=== PATIENT | female | born 1945 | race Caucasian/White ===

== ENCOUNTER 2018-02-23 02:58 | Emergency (ER) | payer OTHER ==
[~2018-02-23] VITALS: Ht 152.4 cm; Wt 102.1 kg
[~2018-02-23 02:58] MED LIST: AMBEREN; APAP W/CODEINE1 TA2 PO; ASPRIMOX 325 M325 MG PO; ATIVAN1 MG PO; CARDIZEM CD180 MG PO; CARTIA XT180 M1 PO; COUMADIN 5 MG TA5 M1 PO; HYDROCHLOROTH12.5 M1 PO; HYDROCHLOROTHIA25 M1 PO; LIDODERM 5%1 PATC1 TRANSDERM; LISINOPRIL20 MG PO; MELATONIN1 MG PO; NEURONTIN 300300 M1 PO; POTASSIUM20; TYLENOL ARTHRITIS PO; ZANTAC 150MG T150 MG PO; ZOCOR 20 MG TAB20 M1 PO
[2018-02-23] MEDS ORDERED: ZANTAC 150MG T150 MG (03:21)
[2018-02-23] MEDS ORDERED: PRINZIDE 20-251 EACH (03:23)
[2018-02-23 03:45] LABS: ABSOLUTE EOSINOPHILS 0.4 thou/uL (0.0-0.7); ABSOLUTE LYMPHOCYTES 2.4 thou/uL (0.8-5.3); ABSOLUTE MONOCYTES 0.7 thou/uL (0.0-1.2); ABSOLUTE NEUTROPHILS 2.7 thou/uL (1.6-8.1); BASOPHILS 0.6 %; HEMATOCRIT 41.2 % (37.0-47.0); HEMOGLOBIN 13.9 gm/dL (12.0-15.0); LYMPHOCYTES 38.9 %; MCH 31.2 pg (26.0-34.0); MCHC 33.8 g/dL (28.0-37.0); MPV 7.9 fl. (7.2-11.1); NUCLEATED RBCS 0 /100WBC; PLATELET COUNT* 246 thou/uL (150-400); POLYS 43.5 %; RBC 4.48 mil/uL (4.20-5.00); RDW-CV 14.7 % (10.5-14.5); WBC 6.2 thou/uL (4.0-11.0)
[2018-02-23 03:55] LABS: ANION GAP 8 mmol/L (7-16); BUN 22 mg/dL (7-18); CALCIUM 8.9 mg/dL (8.5-10.1); CHLORIDE 105 mmol/L (98-107); CO2 29 mmol/L (21-32); CREATININE 0.9 mg/dL (0.6-1.3); GLUCOSE 109 mg/dL (70-99); POTASSIUM 3.7 mmol/L (3.5-5.1); SODIUM 142 mmol/L (136-145)
[2018-02-23 03:57] LABS: INR 1.1; PROTIME 10.6 Seconds (9.20-11.50)
[2018-02-23 04:02] LABS: ALBUMIN 3.2 g/dL (3.4-5.0); ALKALINE PHOSPHATASE 90 U/L (46-116); SGOT 20 U/L (15-37); SGPT 19 U/L (30-65); TOTAL BILIRUBIN 0.3 mg/dL (<0.1-1.0); TOTAL PROTEIN 6.8 g/dL (6.4-8.2); TROPONIN-I LEVEL <0.06 ng/mL (<0.06)
[2018-02-23 04:32] LABS: URINE BILIRUBIN NEGATIVE (Negative); URINE BLOOD NEGATIVE (Negative); URINE CLARITY CLEAR; URINE COLOR YELLOW; URINE GLUCOSE-RANDOM NEGATIVE (Negative); URINE KETONES NEGATIVE (Negative); URINE LEUKOCYTES-REFLEX NEGATIVE (Negative); URINE NITRITE-REFLEX NEGATIVE (Negative); URINE PROTEIN NEGATIVE (Negative); URINE SPECIFIC GRAVITY <= 1.005 (1.005-1.030); URINE UROBILINOGEN 0.2 E.U./dl (0.2-1.0)
[2018-02-23 06:52] VITALS: BP 126/72
--- NOTE | 2018-02-23 18:43 | EKG ---
[place] [address] ELECTROCARDIOGRAM REPORT Name: NICHOBUZZ Linn [id number] Admission: 02/23/18 Attend Phys: Discharge: 02/23/18 Date of : 41 Report #: [id number] THIS REPORT FOR: //name// [facility] ED Test Date: 2018-02-23 Test Time: 03:04:43 Pat Name: BUZZ TORRE Department: Room: Gender: F Net Developer Software Engineer C: VERONIKA Casarez : 1945 Requested By: Glenny Ellis Order Number: [id number] : Jimmy Nunes Measurements Intervals Morrison Rate: 84 P: AR: QRS: 36 QRSD: 95 T: 59 QT: 363 QTc: 430 Interpretive Statements Atrial fibrillation Borderline repolarization abnormality Compared to ECG 02/04/2011 00:24:24 Sinus bradycardia no longer present Electronically Signed On 02-23-2018 18:43:04 CDT by Jimmy Nunes [email or web address] <ELECTRONICALLY SIGNED> By: Jimmy Nunes MD, [facility] 02/23/18 1843 0304 0304 Jimmy Nunes MD, FACC /EPI
== END 2018-02-23 06:53 | disposition home or self-care (01) ==
LOC: M.ERS 02:58
PROVIDERS: Emergency Medicine
DX: R20.2 Paresthesia of skin (principal); I10 Essential (primary) hypertension; I48.91 Unspecified atrial fibrillation; Z96.641 Presence of right artificial hip joint; Z90.49 Acquired absence of other specified parts of digestive tract; Z88.5 Allergy status to narcotic agent; Z88.8 Allergy status to other drugs, medicaments and biological substances

== ENCOUNTER 2021-03-23 10:19 | Emergency (ER) | payer OTHER ==
[~2021-03-23] VITALS: Ht 152.4 cm; Wt 104.3 kg
[~2021-03-23 10:19] MED LIST changes: +PRINZIDE 20-251 EACH; +ZANTAC 150MG T150 MG
[2021-03-23] MEDS ORDERED: JANTOVEN4 MG PO (10:38)
[2021-03-23 12:06] LABS: ABSOLUTE EOSINOPHILS 0.2 thou/uL (0.0-0.7); ABSOLUTE MONOCYTES 0.8 thou/uL (0.0-1.2); ABSOLUTE NEUTROPHILS 4.9 thou/uL (1.6-8.1); BASOPHILS 0.5 %; HEMOGLOBIN 14.4 gm/dL (12.0-15.0); LYMPHOCYTES 24.6 %; MCH 31.3 pg (26.0-34.0); MCHC 34.3 g/dL (28.0-37.0); MCV 91.3 fL (80.0-100.0); MONOCYTES 10.6 %; MPV 7.7 fl. (7.2-11.1); NUCLEATED RBCS 0 /100WBC; PLATELET COUNT* 254 thou/uL (150-400); POLYS 61.3 %; RDW-CV 14.8 % (10.5-14.5)
[2021-03-23 12:21] LABS: APTT 44.7 Seconds (25.0-31.3); INR 3.4; PROTIME 33.1 Seconds (9.20-11.50)
[2021-03-23 13:48] LABS: URINE BILIRUBIN NEGATIVE (Negative); URINE BLOOD 3+ (Negative); URINE CLARITY CLEAR; URINE COLOR YELLOW; URINE GLUCOSE-RANDOM NEGATIVE (Negative); URINE KETONES NEGATIVE (Negative); URINE LEUKOCYTES-REFLEX NEGATIVE (Negative); URINE PROTEIN NEGATIVE (Negative); URINE SPECIFIC GRAVITY <= 1.005 (1.005-1.030); URINE UROBILINOGEN 0.2 E.U./dl (0.2-1.0)
[2021-03-23 13:49] LABS: URINE NITRITE-REFLEX POSITIVE (Negative)
[2021-03-23 13:55] LABS: SQUAMOUS 0-3 Few /LPF (0-3)
[2021-03-23 13:56] LABS: BACTERIA-REFLEX >30 Many /HPF (None Seen); CASTS None Seen /LPF (None Seen); CRYSTALS None Seen /LPF (None Seen); MUCUS None Seen strn/LPF (None Seen); URINE RBC 3-10 Few /HPF (0-2); URINE WBC-REFLEX None Seen /HPF (0-5)
[2021-03-23] MEDS ORDERED: CEPHALEXIN500 MG PO (14:13)
[2021-03-23 14:27] VITALS: BP 137/77
== END 2021-03-23 14:29 | disposition home or self-care (01) ==
LOC: M.ERS 10:19
PROVIDERS: Family Medicine
DX: N39.0 Urinary tract infection, site not specified (principal); N93.8 Other specified abnormal uterine and vaginal bleeding; I10 Essential (primary) hypertension; I48.91 Unspecified atrial fibrillation; Z90.49 Acquired absence of other specified parts of digestive tract; Z88.1 Allergy status to other antibiotic agents; Z88.5 Allergy status to narcotic agent; Z88.8 Allergy status to other drugs, medicaments and biological substances; Z79.899 Other long term (current) drug therapy

== ENCOUNTER 2021-11-02 17:27 | Emergency (ER) | payer OTHER ==
[~2021-11-02] VITALS: Ht 152.4 cm; Wt 104.3 kg
[~2021-11-02 17:27] MED LIST changes: +CEPHALEXIN500 MG PO; +JANTOVEN4 MG PO
[2021-11-02] MEDS ORDERED: JANTOVEN3 MG PO (17:57)
[2021-11-02 18:50] LABS: ABSOLUTE EOSINOPHILS 0.4 thou/uL (0.0-0.7); ABSOLUTE MONOCYTES 0.7 thou/uL (0.0-1.2); ABSOLUTE NEUTROPHILS 2.3 thou/uL (1.6-8.1); BASOPHILS 0.7 %; HEMATOCRIT 40.1 % (37.0-47.0); HEMOGLOBIN 13.4 gm/dL (12.0-15.0); LYMPHOCYTES 36.6 %; MCH 30.1 pg (26.0-34.0); MCHC 33.4 g/dL (28.0-37.0); MCV 89.9 fL (80.0-100.0); MONOCYTES 12.3 %; MPV 8.1 fl. (7.2-11.1); NUCLEATED RBCS 0 /100WBC; PLATELET COUNT* 296 thou/uL (150-400); POLYS 43.4 %; RBC 4.46 mil/uL (4.20-5.00); RDW-CV 14.5 % (10.5-14.5); WBC 5.4 thou/uL (4.0-11.0)
[2021-11-02 18:53] LABS: CALCIUM 9.7 mg/dL (8.5-10.1)
[2021-11-02 19:04] LABS: ALBUMIN 3.1 g/dL (3.4-5.0); TOTAL BILIRUBIN 0.5 mg/dL (<0.1-1.0); TOTAL PROTEIN 6.7 g/dL (6.4-8.2)
[2021-11-02] MEDS ORDERED: PREDNISONE 20 M20 MG PO (19:28)
[2021-11-02 19:33] LABS: URINE BILIRUBIN NEGATIVE (Negative); URINE BLOOD NEGATIVE (Negative); URINE CLARITY CLEAR; URINE COLOR YELLOW; URINE GLUCOSE-RANDOM NEGATIVE (Negative); URINE KETONES TRACE (Negative); URINE LEUKOCYTES-REFLEX NEGATIVE (Negative); URINE NITRITE-REFLEX NEGATIVE (Negative); URINE PROTEIN NEGATIVE (Negative); URINE SPECIFIC GRAVITY 1.025 (1.005-1.030); URINE UROBILINOGEN 0.2 E.U./dl (0.2-1.0)
[2021-11-02 19:43] VITALS: BP 120/58
--- NOTE | 2021-11-03 10:33 | EKG ---
[place] [address] ELECTROCARDIOGRAM REPORT Name: BUZZ TORRE Room: [facility]#: [id number] Admission: 11/02/21 Attend Phys: Discharge: 11/02/21 Date of : 41 Date of Service: 11/02/21 174 Report #: [id number] THIS REPORT FOR: //name// [facility] ED Test Date: 2021-11-02 Test Time: 17:49:17 Pat Name: BUZZ TORRE Department: Room: Gender: F Agency Service Coordinator: TO : 1945 Requested By: Blessing Melvin Order Number: [id number] MD: Roosevelt Howell Measurements Intervals Candor Rate: 91 P: KS: QRS: 40 QRSD: 99 T: 34 QT: 374 QTc: 461 Interpretive Statements Atrial fibrillation Low voltage, precordial leads Borderline T abnormalities, anterior leads Compared to ECG 02/23/2018 03:04:43 Low QRS voltage now present Electronically Signed On 11-03-2021 10:33:09 MOTEL CLERK by Roosevlet Howell [email or web address] <ELECTRONICALLY SIGNED> By: Roosevelt Howell MD, [facility] 11/03/21 1033 1749 1749 Roosevelt Howell MD, [facility] /EPI
== END 2021-11-02 19:43 | disposition home or self-care (01) ==
LOC: M.ERS 17:27
PROVIDERS: Student in an Organized Health Care Education/Training Program
DX: R05.9 Cough, unspecified (principal); R06.02 Shortness of breath; I10 Essential (primary) hypertension; I48.91 Unspecified atrial fibrillation; Z98.890 Other specified postprocedural states; Z79.899 Other long term (current) drug therapy; Z88.1 Allergy status to other antibiotic agents; Z88.5 Allergy status to narcotic agent; Z88.6 Allergy status to analgesic agent; Z88.8 Allergy status to other drugs, medicaments and biological substances